=== PATIENT | male | born 1965 | race Caucasian/White ===

== ENCOUNTER 2023-06-16 12:07 | Emergency (ER) | payer OTHER ==
[~2023-06-16] VITALS: Ht 177.8 cm; Wt 125.0 kg
[2023-06-16] MEDS ORDERED: MUCI120T PO (14:11)
[2023-06-16] MEDS ORDERED: ACET325C5 PO (14:11)
[2023-06-16] MEDS ORDERED: PSEU-52 PO (14:11)
[2023-06-16 14:22] VITALS: BP 166/94; TEMP 98.4; O2SAT 96
== END 2023-06-16 14:25 | disposition home or self-care (01) ==
LOC: M ED 12:07
DX: U07.1 COVID-19 (principal); K21.9 Gastro-esophageal reflux disease without esophagitis